=== PATIENT | male | born 1950 | race Caucasian/White ===

== ENCOUNTER 2018-11-16 08:35 | Day surgery (SDC) | payer MEDICARE ==
[~2018-11-16] VITALS: Ht 175.3 cm; Wt 90.9 kg
[2018-11-16] MEDS ORDERED: SODIUM CHLORIDE 0.9% 1,000 ML IV ONE (09:01)
[2018-11-16 09:11] VITALS: BP 124/90
[2018-11-16] MEDS ORDERED: CHOL2000 PO (09:32)
[2018-11-16] MEDS ORDERED: UBID100C24 PO (09:32)
[2018-11-16] MEDS ORDERED: ATOR20TA37 PO (09:32)
[2018-11-16] MEDS ORDERED: LOSA100T14 PO (09:32)
[2018-11-16] MEDS ORDERED: METO25TA35 PO (09:32)
[2018-11-16] MEDS ORDERED: ASPI81TA45 PO (09:32)
[2018-11-16] MEDS ORDERED: EVOL140P SQ (09:32)
[2018-11-16] MEDS ORDERED: [UNRECOGNIZED DRUG - OTHER] PO (09:32)
[2018-11-16] MEDS ORDERED: CLOP75TA52 PO (09:32)
[2018-11-16] MEDS ORDERED: RANI150T4 PO (09:32)
[2018-11-16] MEDS ORDERED: GLYB5TAB3 PO (09:32)
[2018-11-16] MEDS ORDERED: VERAPAMIL 2.5 MG/ML, 2ML ONE (10:37)
[2018-11-16] MEDS ORDERED: DIPHENHYDRAMINE 50 MG/ML, 1ML ONE (10:37)
[2018-11-16] MEDS ORDERED: MIDAZOLAM 1 MG/ML, 5ML ONE (10:37)
[2018-11-16] MEDS ORDERED: LIDOCAINE-MPF 1%, 5ML ONE (10:37)
[2018-11-16] MEDS ORDERED: HEPARIN 1,000 UNITS/ML, 10ML ONE (10:37)
[2018-11-16] MEDS ORDERED: NITROGLYCERIN 5 MG/ML, 10ML ONE (10:45)
== END 2018-11-16 13:49 | disposition home or self-care (01) ==
LOC: CACL 08:35
PROVIDERS: ATTEND Internal Medicine Cardiovascular Disease
DX: I25.10 Atherosclerotic heart disease of native coronary artery without angina pectoris (principal); I10 Essential (primary) hypertension; E78.2 Mixed hyperlipidemia; E11.41 Type 2 diabetes mellitus with diabetic mononeuropathy; I65.29 Occlusion and stenosis of unspecified carotid artery; Z79.82 Long term (current) use of aspirin; Z79.84 Long term (current) use of oral hypoglycemic drugs
CPT/HCPCS: 93458; 99156; C1894; J1200; J1644; J2250; Q9967

== ENCOUNTER → 2020-12-20 | Outpatient (CLI) | payer MEDICARE ==
[~2020-12-20] MED LIST: ASPI81TA45 PO; ATOR20TA37 PO; CHOL2000 PO; CLOP75TA52 PO; EVOL140P3 SQ; GLYB5TAB3 PO; LOSA100T14 PO; METO25TA35 PO; RANI150T4 PO; UBID100C24 PO; [UNRECOGNIZED DRUG - OTHER] PO
== END | disposition home or self-care (01) ==
LOC: CVU 07:17
PROVIDERS: ATTEND Internal Medicine Cardiovascular Disease
DX: I70.203 Unspecified atherosclerosis of native arteries of extremities, bilateral legs (principal); E11.9 Type 2 diabetes mellitus without complications; E78.5 Hyperlipidemia, unspecified
CPT/HCPCS: 93922; 93925

== ENCOUNTER 2021-01-05 20:02 | Emergency (ER) | payer MEDICARE ==
[~2021-01-05] VITALS: Ht 175.3 cm; Wt 91.3 kg
[2021-01-05 20:07] VITALS: BP 166/85
--- NOTE | 2021-01-05 20:49 | NUR ---
Pt to ER with c/o right LE pain. 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 Pt was instructed to come to ER if pain got worse. Tonight, pt states pain has become worse and he became concerned. Pt to room, on monitor, warm blanket given. Pt with right doppler pulse, toes cold, foot warm and pink. Provider at bedside. Will monitor. Family at bedside.
--- NOTE | 2021-01-05 21:11 | NUR ---
Pt refusing blood draw. Geraldine SOTO at bedside speaking with patient. Will monitor.
--- NOTE | 2021-01-05 21:27 | NUR ---
Patient given discharge instructions and they have confirmed that they understand the instructions. Patient ambulatory with steady gait. Pt to f/u with surgeon on Thursday.
== END 2021-01-05 21:29 ==
LOC: ED 21:28
DX: M79.661 Pain in right lower leg (principal); I77.1 Stricture of artery; I25.2 Old myocardial infarction; I10 Essential (primary) hypertension
CPT/HCPCS: 93005; 99283

== ENCOUNTER 2021-01-09 09:02 | Day surgery (SDC) | payer MEDICARE ==
[~2021-01-09] VITALS: Ht 175.3 cm; Wt 90.0 kg
[2021-01-09 09:48] VITALS: BP 149/80
[2021-01-09] MEDS ORDERED: EMPA1TAB PO (09:51)
[2021-01-09] MEDS ORDERED: [UNRECOGNIZED DRUG - OTHER] SQ (09:53)
[2021-01-09] MEDS ORDERED: VISIPAQUE 270 MG/ML, 150ML BOTTLE ONE (10:00)
[2021-01-09] MEDS ORDERED: SODIUM CHLORIDE 0.9% 1,000 ML IV SCH (10:00)
[2021-01-09 10:15] LABS: BASOPHILS % (AUTO) 1 % (0-1); EOSINOPHILS % (AUTO) 8 % (1-7); LYMPHOCYTES % (AUTO) 24 % (22-44); MEAN CORPUSCULAR HEMOGLOBIN 29.2 pg (27.5-34.5); MEAN CORPUSCULAR HGB CONC 33.9 g/dL (33.2-36.2); MEAN PLATELET VOLUME 7.7 fL (7.4-10.4); MONOCYTES % (AUTO) 10 % (2-9); NEUTROPHILS % (AUTO) 57 % (42-75); PLATELET COUNT 220 x10^3/uL (130-400); RED BLOOD COUNT 5.45 x10^6/uL (4.38-5.82); RED CELL DISTRIBUTION WIDTH 13.8 % (9.4-14.8)
[2021-01-09 10:16] LABS: MD NO
[2021-01-09 10:20] LABS: ANION GAP 7 mmol/L (5-15); CALCIUM 8.9 mg/dL (8.5-10.1); CHLORIDE 110 mmol/L (98-107); CREATININE 1.15 mg/dL (0.7-1.3)
[2021-01-09] MEDS ORDERED: CEFAZOLIN 2,000 MG in SODIUM CHLORIDE 0.9% 50 ML IV ONE (10:27)
[2021-01-09] MEDS ORDERED: FLUMAZENIL 0.1 MG/1 ML, 5ML ONE (10:54)
[2021-01-09] MEDS ORDERED: MIDAZOLAM 1 MG/ML, 5ML ONE (10:54)
[2021-01-09] MEDS ORDERED: FENTANYL PF 100 MCG/2ML ONE (10:54)
[2021-01-09] MEDS ORDERED: HEPARIN 1,000 UNITS/ML, 10ML ONE (10:54)
[2021-01-09] MEDS ORDERED: NALOXONE 1 MG/ML, 2ML ONE (10:55)
[2021-01-09] MEDS ORDERED: PROTAMINE SULFATE 10 MG/ML, 25ML ONE (10:55)
[2021-01-09] MEDS ORDERED: LIDOCAINE 1%, 10ML ONE (11:32)
[2021-01-09] MEDS ORDERED: CLOPIDOGREL 75 MG TABLET ONE (12:32)
[2021-01-19] MEDS ORDERED: CHOL10003 PO (00:11)
[2021-01-19] MEDS ORDERED: METO25TA35 PO (00:11)
[2021-01-19] MEDS ORDERED: GLYB5TAB3 PO (00:11)
[2021-01-19] MEDS ORDERED: METO50TA82 PO (00:11)
[2021-01-19] MEDS ORDERED: ATOR10TA9 PO (00:11)
[2021-01-19] MEDS ORDERED: UBID100C24 PO (00:11)
[2021-01-21] MEDS ORDERED: RIVA20TA PO (16:22)
[2021-01-21] MEDS ORDERED: CLOP75TA52 PO (17:07)
== END 2021-01-09 15:05 | disposition home or self-care (01) ==
LOC: OUT 09:02
PROVIDERS: ATTEND Surgery
DX: I70.221 Atherosclerosis of native arteries of extremities with rest pain, right leg (principal); I70.212 Atherosclerosis of native arteries of extremities with intermittent claudication, left leg; I70.0 Atherosclerosis of aorta; I10 Essential (primary) hypertension; I25.10 Atherosclerotic heart disease of native coronary artery without angina pectoris; E11.9 Type 2 diabetes mellitus without complications; E78.5 Hyperlipidemia, unspecified; Z79.02 Long term (current) use of antithrombotics/antiplatelets; Z79.899 Other long term (current) drug therapy; Z95.5 Presence of coronary angioplasty implant and graft; Z98.890 Other specified postprocedural states
CPT/HCPCS: 36415; 37226; 75630; 75716; 76937; 80048; 85025; 99156; 99157; C1725; C1751; C1760; C1769; C1874; C1894; C2623; J0690; J1644; J2250; J2720; J3010; J7030; Q9966; J2310

== ENCOUNTER 2021-02-06 12:33 | Outpatient (CLI) | payer MEDICARE ==
[~2021-02-06 12:33] MED LIST changes: +ATOR10TA9 PO; +CHOL10003 PO; +EMPA1TAB PO; +METO50TA82 PO; +RIVA20TA PO; +[UNRECOGNIZED DRUG - OTHER] SQ
== END 2021-02-06 23:59 | disposition home or self-care (01) ==
LOC: CVU 12:33
PROVIDERS: ATTEND Surgery
DX: I70.203 Unspecified atherosclerosis of native arteries of extremities, bilateral legs (principal); I77.1 Stricture of artery
CPT/HCPCS: 93922; 93925; 93970

== ENCOUNTER 2021-04-15 11:53 | Day surgery (SDC) | payer MEDICARE ==
[~2021-04-15] VITALS: Ht 172.7 cm; Wt 85.2 kg
[2021-04-15 12:58] VITALS: BP 159/82
[2021-04-15] MEDS ORDERED: CEFAZOLIN PMX 2GM/50ML 50 ML IVPB ONE (13:00)
[2021-04-15] MEDS ORDERED: PLEASE ENTER HEIGHT AND WEIGHT MC SCH (13:00)
[2021-04-15] MEDS ORDERED: [UNRECOGNIZED DRUG - OTHER] (13:19)
[2021-04-15] MEDS ORDERED: XERALTO PO (13:19)
[2021-04-15] MEDS ORDERED: MIDAZOLAM 1 MG/ML, 5ML ONE (13:39)
[2021-04-15] MEDS ORDERED: FENTANYL PF 100 MCG/2ML ONE (13:39)
[2021-04-15] MEDS ORDERED: NALOXONE 1 MG/ML, 2ML ONE (13:39)
[2021-04-15] MEDS ORDERED: HEPARIN 1,000 UNITS/ML, 10ML ONE (13:39)
[2021-04-15] MEDS ORDERED: FLUMAZENIL 0.1 MG/1 ML, 5ML ONE (13:39)
[2021-04-15] MEDS ORDERED: PROTAMINE SULFATE 10 MG/ML, 25ML ONE (13:40)
[2021-04-15] MEDS ORDERED: VISIPAQUE 270 MG/ML, 50ML BOTTLE ONE (14:00)
[2021-04-15] MEDS ORDERED: LIDOCAINE 2%, 20ML ONE (14:03)
[2021-04-15] MEDS ORDERED: CLOPIDOGREL 75 MG TABLET ONE (15:25)
== END 2021-04-15 18:25 | disposition home or self-care (01) ==
LOC: OUT 11:53
PROVIDERS: ATTEND Surgery
DX: I70.213 Atherosclerosis of native arteries of extremities with intermittent claudication, bilateral legs (principal); I10 Essential (primary) hypertension; I25.10 Atherosclerotic heart disease of native coronary artery without angina pectoris; E78.5 Hyperlipidemia, unspecified; Z79.01 Long term (current) use of anticoagulants; Z79.02 Long term (current) use of antithrombotics/antiplatelets; Z79.899 Other long term (current) drug therapy; Z98.890 Other specified postprocedural states
CPT/HCPCS: 37220; 37224; 75710; 82962; 99156; 99157; C1725; C1751; C1760; C1769; C1894; J0690; J1644; J2250; J2720; J3010; Q9966; J2310